=== PATIENT | male | born 1970 | race Caucasian/White ===

== ENCOUNTER 2023-01-22 10:02 | Emergency (ER) | payer BC, SELFPAY ==
[2023-01-22 10:08] VITALS: BP 133/97; PULSE 103; RESP 16; TEMP 36.4; O2SAT 100; BMI 25.2
--- NOTE | 2023-01-22 11:13 | CRLHL7_ITS ---
For Patients: As a result of the 21st Century Cures Act, medical imaging exams and procedure reports are released immediately into your electronic medical record. You may view this report before your referring provider. If you have questions, please contact your health care provider. INDICATION: Left-sided anal fistula. Previous surgery 3 years ago appearance COMPARISON: None TECHNIQUE: CT examination of the abdomen and pelvis was performed following the uneventful intravenous administration of 77 cc of Isovue 370. Thin section axial images were obtained from the lung bases through the pubic symphysis. Oral contrast was not administered. Please note that all CT scans at this facility use dose modulation, iterative reconstruction, and/or weight-based dosing when appropriate to reduce radiation dose to as low as reasonably achievable. FINDINGS: LUNG BASES: The heart size is normal as the lung bases. The lung bases are unremarkable. LIVER/BILIARY SYSTEM:Hepatic steatosis. There is a 1.3 centimeter lesion in the left lobe of the liver that measures 61 Hounsfield units. This is indeterminate on the current examination. Follow-up evaluation is recommended in the nonacute care setting. MRI is study of choice. No additional lesions and no biliary ductal dilation. The gallbladder appears normal. ADRENALS: Normal KIDNEYS, URETERS and BLADDER:The kidneys appear normal. No visible mass, calculus or hydronephrosis. The ureters and bladder as visualized appear normal. SPLEEN:Normal appearance. PANCREAS: Appears normal. RETROPERITONEUM and MESENTERY: There is no mass, adenopathy or aortic aneurysm. Atherosclerotic vascular calcifications GASTROINTESTINAL SYSTEM: There is no evidence of diverticulitis, colitis, mechanical obstruction, or appendicitis. The small bowel as visualized appears normal.Abnormal perianal area as described below PELVIS: There is induration that appears to be arising from the posterolateral right aspect of the rectum. There is a collection that is primarily right-sided relative to the anal canal measuring 4.7 x 3.3 x 6.4 centimeters in its medial lateral, anteroposterior and craniocaudal respective dimensions. This probably represents an abscess. This extends inferiorly into the fatty tissue of the buttocks and superiorly into the right ischial rectal fossa. There is inflammation just above the urogenital diaphragm but no definite collection above the urogenital diaphragm. The superior aspect of the collection extends partially into the left and affects the bulb of the penis. I cannot demonstrate direct fistulous connection with either the skin surface over the anal canal. OSSEOUS STRUCTURES and ABDOMINAL WALL: There is an age-appropriate appearance of the osseous structures.No significant abdominal wall defect. OTHER: No free fluid or free air. IMPRESSION: 1. Perianal collection probably an abscess measuring 4.7 x 3.3 x 6.4 centimeters as described in the body of the report. 2. Indeterminate hepatic lesion for which follow-up is recommended in the nonacute care setting. Please note that all CT scans at this facility use dose modulation, iterative reconstruction, and/or weight-based dosing when appropriate to reduce radiation dose to as low as reasonably achievable. Dictated by Moose Lund MD @ 01/22/2023 1:25:31 PM (Electronically Signed)
[2023-01-22 11:56] LABS: Basophils Percent Auto 0.2 % (0.0-3.0); Eosinophils Percent Auto 0.2 % (0.0-7.0); Hematocrit 47.5 % (37.0-53.0); Immature Granulocytes Pct Auto 0.4 %; Lymphocytes Percent Auto 8.8 % (20-44); Mean Corpuscular HGB Conc 34 gm/dL (32-36); Mean Corpuscular Hemoglobin 31 pg (26-34); Mean Corpuscular Volume 91 fL (80-100); Monocytes Percent Auto 6.7 % (0.0-11.0); Neutrophils Percent Auto 83.7 % (42.0-72.0); Platelet Count* 267 K/uL (140-440); Red Blood Count 5.22 m/uL (4.30-5.90); White Blood Count* 19.87 K/uL (4.50-11.00)
[2023-01-22 11:57] LABS: Slide Review Reflex No
[2023-01-22 12:13] LABS: Chloride* 101 mmol/L (96-114)
[2023-01-22 12:14] LABS: Potassium* 3.9 mmol/L (3.6-5.1); Sodium* 138 mmol/L (135-149)
[2023-01-22 12:16] LABS: Creatinine* 0.8 mg/dL (0.5-1.5); Est. Creatinine Clearance* 98.58; Estimated Glomerular Filt Rate 107 ml/min
[2023-01-22 12:17] LABS: Anion Gap 11 mEq/L (7-15); Blood Urea Nitrogen* 10 mg/dL (7-30); Calcium* 9.6 mg/dL (8.4-10.6); Carbon Dioxide* 26 mmol/L (20-32); Glucose* 102 mg/dL (60-115)
[2023-01-22 12:30] LABS: Lab Add On Test New Spec Needed
--- NOTE | 2023-01-22 12:30 | ED_ITS ---
HPI - General Adult General Date Seen: 01/22/23 Chief complaint: Skin/Abscess/Foreign Body Stated complaint: infection Time Seen by Provider: 01/22/23 10:58 Source: patient Mode of arrival: ambulatory Limitations: no limitations History of Present Illness HPI narrative: Patient is a 52-year-old male with a history of multiple anal fistulas presented emergency department for what he believes is another anal fistula. He states several years ago he initially had a surgery on his in a fistula in since than what I have flare ups every few days but then they would drain themselves symptoms would resolve. He states this has not been going on for the past 3 or 4 days without any improvement in the symptoms he is concerned it is getting worse that he might need surgery again. Denies any fevers or chills. Does admit to discomfort while sitting down and when having a bowel movement. Has not noticed any blood in his stool. Does state the area to the right of his anal region is farah compared to normal. Denies abdominal pain, headache, lightheadedness, dizziness, weakness, numbness. Related Data Home Medications Medication Instructions Recorded Confirmed No Known Home Medications 01/22/23 01/22/23 Allergies Allergy/AdvReac Type Severity Reaction Status Date / Time No Known Drug Allergies Allergy Verified 01/22/23 12:02 Review of Systems Status of ROS: Reports: 10 or more systems reviewed and unremarkable except as noted in History and below Exam Narrative: Exam Narrative: Const: Well-nourished, Well-developed, in mild distress Eyes: PERRL, no conjunctival injection, and symmetrical lids HENT: Atraumatic external nose and ears. Moist mucous membranes. Neck: Symmetric, trachea midline, No thyromegaly. CVS: RRR, No murmurs or gallops. Peripheral pulses 2+ and equal in all extremities RESP: Unlabored respiratory effort. Clear to auscultation bilaterally. GI: Nontender/Nondistended, No rebound or guarding. Old fistula scar seen inferior and to the right of the anus with a hard tense region felt just to the right of the anal region MSK:Extremities w/o deformity, Normal Active ROM Skin: Warm, Dry. No rashes or lesions. Neuro: Normal Muscle tone, No focal neurological deficits. Psych: Awake, Alert, & Oriented x3. Appropriate mood and affect. Const: Vital Signs, click to edit/add: Vital Signs - 24 hr 01/22/23 10:08 01/22/23 12:33 01/22/23 14:33 Temperature 97.6 F 99.9 F H 97.5 F L Pulse Rate [Pulse Oximeter] 103 H 84 Respiratory Rate 16 16 Blood Pressure [Le ft Upper Arm] 133/97 H 147/83 H Pulse Oximetry 100 96 Oxygen Delivery Me thod Room Air Room Air Course Vital Signs Vital signs: Initial Vital Signs Temperature 97.6 F 01/22/23 10:08 Temperature Source Temporal Artery Scan 01/22/23 10:08 Pulse Rate 103 H 01/22/23 10:08 Respiratory Rate 16 01/22/23 10:08 Blood Pressure 133/97 H 01/22/23 10:08 Blood Pressure Mean 109 H 01/22/23 10:08 Blood Pressure Position Standing 01/22/23 10:08 Pulse Oximetry 100 01/22/23 10:08 Oxygen Delivery Method Room Air 01/22/23 10:08 Vital Signs Temperature 97.6 F 01/22/23 10:08 Pulse Rate 103 H 01/22/23 10:08 Respiratory Rate 16 01/22/23 10:08 Blood Pressure 133/97 H 01/22/23 10:08 Pulse Oximetry 100 01/22/23 10:08 Oxygen Delivery Method Room Air 01/22/23 10:08 Temperature 97.5 F L 01/22/23 14:33 Pulse Rate 84 01/22/23 12:33 Respiratory Rate 16 01/22/23 12:33 Blood Pressure 147/83 H 01/22/23 12:33 Pulse Oximetry 96 01/22/23 12:33 Oxygen Delivery Method Room Air 01/22/23 12:33 Medical Decision Making [facility] Narrative Medical decision making narrative: Patient is a 52-year-old male presenting emergency department for a right perianal abscess. He has had history of fistula in the past. States previously over the past few years every couple months he also developed an abscess that will break open the scar from his previous surgery and then the symptoms were resolved. States this was not improving surgeries concerning came to the emergency department. We will order a CT scan to check for any fistulas in to better evaluate the abscess. Also cbc and BMP. CBC returned showing a white count of 19. He initially had a pulse of 103 so does meet SIRS criteria the lactate and blood cultures were ordered along with a troponin. Her lactate was within normal limits. Troponin showed no concerning abnormalities. BMP showed no concerning abnormalities. CT scan returned showing a 6 x 4 x 3 cm abscess. I spoke to the on-call surgeon Dr. You and she recommend that he sees colorectal surgery due to the concern for possible fistula. She states she can drain it if needed but would like me with Colorectal surgery 1st. I spoke to Dr. Bill of [facility], she recommends we drain it today and they can follow him up in the clinic tomorrow morning. Patient is agreeable to this plan. It was decided that I will drain the abscess and this was performed. Large amount of purulent discharge was removed. Abscess was thoroughly cleaned and then iodoform was placed. Dr. Palacios recommended no antibiotics unless we are unable to thoroughly drained the abscess or that he is diabetic. Since I believe I was able to get a good drainage of the abscess and he is not diabetic we will not place him on antibiotics. We will give him a couple oxycodone for pain control out of in instymeds. He will be discharged home he agrees with this plan Lab Data Labs: Lab Results 01/22/23 01/22/23 01/22/23 Range/Units 11:35 12:03 12:23 WBC 19.87 H (4.50-11.00) K/uL RBC 5.22 (4.30-5.90) m/uL Hgb 16.0 (13.5-17.5) gm/dL Hct 47.5 (37.0-53.0) % MCV 91 (80-100) fL MCH 31 (26-34) pg MCHC 34 (32-36) gm/dL RDW Coeff of Norris 12.0 (11.5-15.5) % Plt Count 267 (140-440) K/uL Neut % (Auto) 83.7 H (42.0-72.0) % Lymph % (Auto) 8.8 L (20-44) % [place] % (Auto) 6.7 (0.0-11.0) % Eos % (Auto) 0.2 (0.0-7.0) % Baso % (Auto) 0.2 (0.0-3.0) % Neut # (Auto) 16.60 H (1.7-7.0) K/uL Lymph # (Auto) 1.70 (0.90-2.90) K/uL [place] # (Auto) 1.30 H (0.00-0.90) K/UL Eos # (Auto) 0.00 (0.00-0.50) K/uL Baso # (Auto) 0.00 (0.00-0.30) K/uL Abs Immat Gran (auto) 0.10 (0.00-0.30) K/uL Imm/Tot Granulo (auto) 0.4 % Sodium 138 (135-149) mmol/L Potassium 3.9 (3.6-5.1) mmol/L Chloride 101 (96-114) mmol/L Carbon Dioxide 26 (20-32) mmol/L Anion Gap 11 (7-15) mEq/L BUN 10 (7-30) mg/dL Creatinine 0.8 (0.5-1.5) mg/dL Estimated Creat Clear 98.58 Estimated GFR 107 ml/min Glucose 102 (60-115) mg/dL Lactate 1.0 (0.5-1.9) mmol/L Calcium 9.6 (8.4-10.6) mg/dL Troponin I < 0.01 L (0.01-0.04) ng/mL Lab Acknowledgement New Spec Needed Imaging Data CT scan abdomen and pelvis: Radiologist's impression: INDICATION: Left-sided anal fistula. Previous surgery 3 years ago appearance COMPARISON: None TECHNIQUE: CT examination of the abdomen and pelvis was performed following the uneventful intravenous administration of 77 cc of Isovue 370. Thin section axial images were obtained from the lung bases through the pubic symphysis. Oral contrast was not administered. Please note that all CT scans at this facility use dose modulation, iterative reconstruction, and/or weight-based dosing when appropriate to reduce radiation dose to as low as reasonably achievable. FINDINGS: LUNG BASES: The heart size is normal as the lung bases. The lung bases are unremarkable. LIVER/BILIARY SYSTEM:Hepatic steatosis. There is a 1.3 centimeter lesion in the left lobe of the liver that measures 61 Hounsfield units. This is indeterminate on the current examination. Follow-up evaluation is recommended in the nonacute care setting. MRI is study of choice. No additional lesions and no biliary ductal dilation. The gallbladder appears normal. ADRENALS: Normal KIDNEYS, URETERS and BLADDER:The kidneys appear normal. No visible mass, calculus or hydronephrosis. The ureters and bladder as visualized appear normal. SPLEEN:Normal appearance. PANCREAS: Appears normal. RETROPERITONEUM and MESENTERY: There is no mass, adenopathy or aortic aneurysm. Atherosclerotic vascular calcifications GASTROINTESTINAL SYSTEM: There is no evidence of diverticulitis, colitis, mechanical obstruction, or appendicitis. The small bowel as visualized appears normal.Abnormal perianal area as described below PELVIS: There is induration that appears to be arising from the posterolateral right aspect of the rectum. There is a collection that is primarily right-sided relative to the anal canal measuring 4.7 x 3.3 x 6.4 centimeters in its medial lateral, anteroposterior and craniocaudal respective dimensions. This probably represents an abscess. This extends inferiorly into the fatty tissue of the buttocks and superiorly into the right ischial rectal fossa. There is inflammation just above the urogenital diaphragm but no definite collection above the urogenital diaphragm. The superior aspect of the collection extends partially into the left and affects the bulb of the penis. I cannot demonstrate direct fistulous connection with either the skin surface over the anal canal. OSSEOUS STRUCTURES and ABDOMINAL WALL: There is an age-appropriate appearance of the osseous structures.No significant abdominal wall defect. OTHER: No free fluid or free air. IMPRESSION: 1. Perianal collection probably an abscess measuring 4.7 x 3.3 x 6.4 centimeters as described in the body of the report. 2. Indeterminate hepatic lesion for which follow-up is recommended in the nonacute care setting. Please note that all CT scans at this facility use dose modulation, iterative reconstruction, and/or weight-based dosing when appropriate to reduce radiation dose to as low as reasonably achievable. Dictated by Moose Lund MD @ 01/22/2023 1:25:31 PM Discharge Plan Discharge Clinical Impression: Abscess Patient Disposition: Home, Self-Care Condition: Stable Instructions: Abscess Follow-up (ED) Additional Instructions: Please call [facility] at [phone] to schedule a follow up appointment tomorrow morning. They open at 8:30 am. I spoke to Dr. Bill on the phone and she states they can see you right away in the morning. Prescriptions: No Action No Known Home Medications Follow Up/Referrals: Provider,Not a Local [Primary Care Provider] - Stand Alone Forms: [facility] Info Instructions Procedures I/D Type: abscess Site: mimi-rectal Name of person performing procedure: Rhys Escobar Side (if applicable): right Local Anesthetic: lidocaine 1% and with epi Amount of anesthesia used (mL): 8 Technique: needle aspiration and incised with #11 blade Amount of fluid expressed (mL): 100 Irrigation: Yes Packing used?: iodoform Estimated blood loss (if any): less than 5mls Conclusion: patient tolerated procedure
[2023-01-22] MEDS: IBUPROFEN 400 MG TABLET 800 MG PO (12:32)
[2023-01-22 12:33] VITALS: BP 147/83; PULSE 84; RESP 16; TEMP 37.7; O2SAT 96
[2023-01-22 13:30] LABS: Troponin I* < 0.01 ng/mL (0.01-0.04)
[2023-01-22 14:33] VITALS: TEMP 36.4
== END 2023-01-22 16:25 | disposition home or self-care (01) ==
PROVIDERS: Emergency Provider Student in an Organized Health Care Education/Training Program
DX: K61.1 Rectal abscess (principal)
CPT/HCPCS: 10060; 10061; 36415; 74177; 80048; 83605; 84484; 85025; 87040; 87070; 99283; 99284; A9270; J2270; Q9967